=== PATIENT | female | born 1950 | race Caucasian/White ===

== ENCOUNTER 2021-04-29 17:41 | Emergency (ER) | payer MEDICARE ==
[~2021-04-29] VITALS: Ht 152.4 cm; Wt 63.5 kg
[2021-04-29] MEDS ORDERED: AMOX/K CLAV875 M1 PO (19:37)
[2021-04-29] MEDS ORDERED: CORTISPORIN OTI10 M2 AS (19:37)
[2021-04-29 19:59] VITALS: BP 148/95
== END 2021-04-29 20:07 | disposition home or self-care (01) ==
LOC: ED 17:41
DX: H60.92 Unspecified otitis externa, left ear (principal); H66.92 Otitis media, unspecified, left ear